=== PATIENT | female | born 1975 | race Caucasian/White ===

== ENCOUNTER 2017-04-07 13:33 | Emergency (ER) | payer SELFPAY ==
[2017-04-07 13:47] VITALS: BP 131/69
--- NOTE | 2017-04-07 14:46 | RAD ---
INDICATION: Right foot injury COMPARISON: None TECHNIQUE: AP, lateral, and oblique views were obtained. FINDINGS: There are no acute osseous findings. There is an arcuate tarsonavicular with an ossicle or old fracture. There are heel spurs. There are mild hammertoe deformities. IMPRESSION: NO ACUTE BONY FINDINGS.
--- NOTE | 2017-04-07 15:11 | ED ---
Lower Extremity - HPI Summary HPI Summary: 41 female presents with complaints of right foot pain and twisting it and falling down a few stairs yesterday. Patient did not hit her head and denies any other injuries. Admits to some swelling. States her foot landed underneath her. Patient denies bruising and ankle/knee pain. Walking and touch worsens her pain. Resting makes pain better. Dull ache. Sharp with certain movement. Pain is on top of foot. No other complaints. No PMHx. Has been taking ibuprofen for pain which was last taken at 5am today. Denies numbness/tingling. - History of Current Complaint Chief Complaint: EDExtremityLower Stated Complaint: RIGHT ANKLE PAIN Time Seen by Provider: 04/07/17 13:50 Hx Obtained From: Patient Mechanism Of Injury: Fall From Height Of: - 2-3 stairs, Twisted Onset of Pain: Immediate, Post Accident Onset/Duration: Days - yesterday began Severity Initially: Moderate Severity Currently: Moderate Pain Intensity: 6 Pain Scale Used: 0-10 Numeric Timing: Constant Location: Is Discrete @ - top of right foot Character Of Pain: Sharp, Aching Associated Signs And Symptoms: Positive: Swelling. Negative: Redness, Bruising , Fever Aggravating Factor(s): Standing, Ambulation, Weight Bearing Alleviating Factor(s): Rest, OTC Meds - ibuprofen Able to Bear Weight: Yes - causes pain - Allergies/Home Medications Allergies/Adverse Reactions: Allergies Allergy/AdvReac Type Severity Reaction Status Date / Time Clarithromycin [From Biaxin] Allergy Hives Verified 04/07/17 13:53 Latex Allergy Rash Verified 04/07/17 13:53 Levofloxacin [From Levaquin] Allergy Rash Verified 04/07/17 13:53 Metronidazole [From Flagyl] Allergy Unknown Verified 04/07/17 13:53 Reaction Details Nitrofurantoin Allergy Anaphylatic Verified 04/07/17 13:53 [From Macrobid] Shock Sulfamethoxazole Allergy Hives Verified 04/07/17 13:53 w/Trimethoprim [From Bactrim] PMH/Surg Hx/FS Hx/Imm Hx Endocrine/Hematology History: Denies: Hx Diabetes Respiratory History: Denies: Hx Asthma GI History: Reports: Hx Gastroesophageal Reflux Disease, Other GI Disorders - cyclic vomiting syndrome History: Reports: Hx Kidney Stones, Other Problems/Disorders - HX of kidney stones Musculoskeletal History: Reports: Hx Back Problems - spinal stenosis Neurological History: Reports: Hx Spinal Cord Injury - spinal stenosis causes periodic numbness to b/l LE and/or hands Psychiatric History: Reports: Hx Depression - Cancer History Hx Chemotherapy: No Hx Radiation Therapy: No - Surgical History Surgery Procedure, Year, and Place: kidney stones removed via stent. wisdom teeth removed. - Immunization History Date of Tetanus Vaccine: PT STATES UNSURE Date of Influenza Vaccine: PT STATES UNSURE Immunizations Up to Date: Yes Infectious Disease History: Yes Infectious Disease History: Denies: Traveled Outside the [place] in Last 30 Days - Social History Alcohol Use: None Substance Use Type: Reports: None, Prescribed Substance Use Comment - Amount & Last Used: PRESCRIBED DILAUDID PO Smoking Status (MU): Current Every Day Smoker Review of Systems Constitutional: Negative Cardiovascular: Negative Respiratory: Negative Gastrointestinal: Negative Positive: Arthralgia, Myalgia, Decreased ROM, Edema - right top of foot Skin: Negative Neurological: Negative All Other Systems Reviewed And Are Negative: Yes Physical Exam Triage Information Reviewed: Yes Vital Signs On Initial Exam: Initial Vitals Temp Pulse Resp BP Pulse Ox 98.4 F 91 18 131/69 98 04/07/17 13:45 04/07/17 13:45 04/07/17 13:45 04/07/17 13:45 04/07/17 13:45 Vital Signs Reviewed: Yes Appearance: Positive: Well-Appearing, No Pain Distress, Well-Nourished Skin: Positive: Warm, Skin Color Reflects Adequate Perfusion, Dry. Negative: Cold, Numb, Cyanosis @, Pale, Erythema @ Head/Face: Positive: Normal Head/Face Inspection Eyes: Positive: Conjunctiva Clear ENT: Positive: Hearing grossly normal Neck: Positive: Supple, Nontender Respiratory/Lung Sounds: Positive: Clear to Auscultation, Breath Sounds Present. Negative: Rales, Rhonchi, Wheezes Cardiovascular: Positive: Normal, RRR, Pulses are Symmetrical in both Upper and Lower Extremities - 2+ pedal b/l. Negative: Murmur, Rub Musculoskeletal: Positive: Strength/ROM Intact - however causes pain with movement or touch, but is able. all toes and ankle FROM, Pain @ - top, anterior of right foot, diffusely tender to touch, Edema Left - chronic, Edema Right - mild edema of right foot, some may be chronic per patient, Other - no crepitus or step off, no ecchymosis or obvious deformity noted. Negative: Limited @, Interruption @, Abnormal @, Zara Sign Left, Zara Sign Right Neurological: Positive: Normal, Sensory/Motor Intact - sensation intact, Alert, Oriented to Person Place, Time, CN Intact II-III, NV Bundle Intact Distally, Normal Gait - however causes pain Psychiatric: Positive: Affect/Mood Appropriate Diagnostics - Vital Signs Vital Signs Temp Pulse Resp BP Pulse Ox 04/07/17 13:51 98.4 F 91 16 131/69 98 04/07/17 13:45 98.4 F 91 18 131/69 98 - Laboratory Lab Statement: Any lab studies that have been ordered have been reviewed, and results considered in the medical decision making process. - Radiology right foot Xray Interpretation: No Acute Changes Radiology Interpretation Completed By: Radiologist Lower Extremity Course/Dx - Course Course Of Treatment: given naproxen for pain, farideh bandage applied. discussed CAM boot however patient was not interested. given crutches. RICE and NSAIDs. negative x-ray. no concern for fracture or other etiology. aware of worsening signs and symptoms. follow up. - Diagnoses Differential Diagnosis/HQI/PQRI: Positive: Arthritis, Contusion, Dislocation, Fracture (Closed), Sprain, Strain Provider Diagnoses: Right foot sprain Discharge - Discharge Plan Condition: Stable Disposition: HOME Patient Education Materials: Foot Sprain (ED) Referrals: Jose Whitaker MD [Primary Care Provider] - Additional Instructions: Take anti inflammatory medication such as ibuprofen or aleve every 4-6 hours for pain and inflammation. Rest, elevate and ice. Keep farideh bandage on for compression and pain. Crutches as needed. Follow up with PCP. Return if symptoms worsen or new symptoms develop.
[2017-04-07] MEDS ORDERED: Naproxen TAB* 250 MG PO ONE (15:20)
== END 2017-04-07 15:30 | disposition home or self-care (01) ==
LOC: ED 13:33
DX: S93.601A Unspecified sprain of right foot, initial encounter (principal); Y93.9 Activity, unspecified; W10.9XXA Fall (on) (from) unspecified stairs and steps, initial encounter; M79.671 Pain in right foot; R60.9 Edema, unspecified
CPT/HCPCS: 99282; A9270-GY

== ENCOUNTER 2019-10-20 20:32 | Emergency (ER) | payer OTHER ==
--- NOTE | 2019-10-20 21:58 | ED ---
Lower Extremity - HPI Summary HPI Summary: 43-year-old female in no significant past medical history presents to the emergency Department today with chief complaint of bilateral lower extremity edema. Patient states she chronically has water retention in her bilateral feet however she began noticing new bilateral lower extremity edema with no erythema or ecchymosis at approximately 0600 this date. Patient states that approximately 1300 the left leg began having weeping edema. Patient has taken 40 mg of furosemide prior to arrival for her edema. Patient denies recent travel, recent surgery, immobilization. Patient denies past medical history of blood clot. The patient denies shortness of breath or chest pain. Patient otherwise feels well and is able to ambulate. Patient denies fever, chest pain , shortness breath, vomiting, urination, nausea, vomiting or diarrhea. - History of Current Complaint Chief Complaint: EDExtremityLower Stated Complaint: LT LEG SWOLLEN PER PT Time Seen by Provider: 10/20/19 21:44 Hx Obtained From: Patient Mechanism Of Injury: Unknown Onset of Pain: Hours Onset/Duration: Hours Severity Initially: Mild Severity Currently: Mild Pain Intensity: 3 Pain Scale Used: 0-10 Numeric Timing: Constant Character Of Pain: Aching Associated Signs And Symptoms: Positive: Swelling. Negative: Redness, Bruising , Fever Aggravating Factor(s): Standing, Ambulation, Movement, Weight Bearing Alleviating Factor(s): Rest, Elevation Able to Bear Weight: Yes - Allergies/Home Medications Allergies/Adverse Reactions: Allergies Allergy/AdvReac Type Severity Reaction Status Date / Time MS Clarithromycin Allergy Hives Verified 10/20/19 20:35 [From Biaxin] MS Latex [Latex] Allergy Rash Verified 10/20/19 20:35 MS Levofloxacin Allergy Rash Verified 10/20/19 20:35 [From Levaquin] MS Metronidazole Allergy Unknown Verified 10/20/19 20:35 [From Flagyl] Reaction Details MS Nitrofurantoin Allergy Anaphylatic Verified 10/20/19 20:35 [From Macrobid] Shock MS Sulfamethoxazole Allergy Hives Verified 10/20/19 20:35 w/Trimethoprim [From Bactrim] Home Medications: Home Medications Amitriptyline TAB* [Elavil TAB*] 25 mg PO BEDTIME 05/25/16 [History Confirmed ] Carisoprodol TAB* [Soma TAB*] 350 mg PO TID PRN 05/25/16 [History Confirmed 02/04] FLUoxetine CAP* [PROzac CAP*] 20 mg PO DAILY 05/25/16 [History Confirmed ] Furosemide TAB* [Lasix TAB*] 40 mg PO DAILY PRN 05/25/16 [History Confirmed 02/04] HYDROmorphone TAB* [Dilaudid TAB*] 4 mg PO Q4H PRN 05/25/16 [History Confirmed 05/27/16] Ibuprofen TAB* [Motrin TAB* 800 MG] 800 mg PO Q8H PRN 05/25/16 [History Confirmed 05/27/16] Metoclopramide TAB* [Reglan TAB*] 10 mg PO Q6H PRN 05/25/16 [History Confirmed 05/27/16] Ondansetron ODT TAB* [Zofran Odt TAB*] 1 - 2 tab PO Q6H PRN 05/25/16 [History Confirmed 05/27/16] Pantoprazole TAB * [Protonix TAB (NF)] 40 mg PO DAILY 05/25/16 [History Confirmed 05/27/16] Potassium Chloride [K-Tab] 10 - 20 meq PO DAILY PRN 05/25/16 [History Confirmed 05/27/16] oxyCODONE/Acetamin 10/325(NF) [Percocet 10/325 (NF)] 1 tab PO QID PRN 05/25/16 [ History Confirmed 05/27/16] Amoxicillin PO (*) [Amoxicillin 875 MG (*)] 2 tab PO DAILY 05/27/16 [History Confirmed 05/27/16] Furosemide TAB* [Lasix TAB*] 40 mg PO DAILY #20 tab 10/20/19 [Rx] PMH/Surg Hx/FS Hx/Imm Hx Endocrine/Hematology History: Denies: Hx Diabetes Respiratory History: Denies: Hx Asthma GI History: Reports: Hx Gastroesophageal Reflux Disease, Other GI Disorders - cyclic vomiting syndrome History: Reports: Hx Kidney Stones, Other Problems/Disorders - HX of kidney stones Musculoskeletal History: Reports: Hx Back Problems - spinal stenosis Neurological History: Reports: Hx Spinal Cord Injury - spinal stenosis causes periodic numbness to b/l LE and/or hands Psychiatric History: Reports: Hx Depression - Cancer History Hx Chemotherapy: No Hx Radiation Therapy: No - Surgical History Surgery Procedure, Year, and Place: kidney stones removed via stent. wisdom teeth removed. - Immunization History Date of Tetanus Vaccine: PT STATES UNSURE Date of Influenza Vaccine: PT STATES UNSURE Infectious Disease History: No Infectious Disease History: Denies: Traveled Outside the [place] in Last 30 Days - Social History Alcohol Use: None Substance Use Type: Reports: None, Prescribed Substance Use Comment - Amount & Last Used: PRESCRIBED DILAUDID PO Smoking Status (MU): Current Every Day Smoker Review of Systems Constitutional: Negative Eyes: Negative ENT: Negative Cardiovascular: Negative Respiratory: Negative Gastrointestinal: Negative Genitourinary: Negative Positive: Myalgia, Edema. Negative: Arthralgia, Decreased ROM Skin: Negative Neurological/Mental Status: Negative Psychological: Normal All Other Systems Reviewed And Are Negative: Yes Physical Exam - Summary Physical Exam Summary: Patient is in acute distress. Patient has bilateral lower extremity edema. There is no evidence of erythema or ecchymosis. There is 2+ pitting edema bilaterally with weeping edema on the left lower cavity. Patient has 2+ dorsalis pedis pulses bilaterally. Patient has full range of motion of the lower extremities. Patient is neurovascularly intact in the lower extremity as bilaterally. Negative Homans sign bilaterally. Triage Information Reviewed: Yes Vital Signs On Initial Exam: Initial Vitals Temp Pulse Resp BP Pulse Ox 97.1 F 91 15 118/88 94 10/20/19 20:33 10/20/19 20:33 10/20/19 20:33 10/20/19 20:33 10/20/19 20:33 Vital Signs Reviewed: Yes Appearance: Positive: Well-Appearing, No Pain Distress, Well-Nourished Skin: Positive: Warm, Skin Color Reflects Adequate Perfusion Eyes: Positive: EOMI, FREDRICK ENT: Positive: Hearing grossly normal Respiratory/Lung Sounds: Positive: Clear to Auscultation, Breath Sounds Present Cardiovascular: Positive: RRR, S1, S2 Abdomen Description: Positive: Nontender, Soft Bowel Sounds: Positive: Present Musculoskeletal: Positive: Strength/ROM Intact Neurological: Positive: Sensory/Motor Intact, Alert, Oriented to Person Place, Time, Normal Gait, Facial Symmetry, Speech Normal Psychiatric: Positive: Normal, Affect/Mood Appropriate AVPU Assessment: Alert Procedures - Sedation Patient Received Moderate/Deep Sedation with Procedure: No Diagnostics - Vital Signs Vital Signs Temp Pulse Resp BP Pulse Ox 10/20/19 20:33 97.1 F 91 15 118/88 94 - Laboratory Result Diagrams: 10/20/19 22:21 10/20/19 22:21 Lab Statement: Any lab studies that have been ordered have been reviewed, and results considered in the medical decision making process. Lower Extremity Course/Dx - Course Course Of Treatment: Patient was evaluated in emergency department today for lower extremity edema. Vitals noted and stable. Physical exam is consistent with possible venous insufficiency. Laboratory studies returned with no concerning findings. No evidence of leukocytosis, renal insufficiency, liver disease, anemia, negative d-dimer. Laboratory studies show no life-threatening pathology at this time. Patient was given prescription for furosemide 40 mg daily and told to follow-up with her primary care provider. Patient discharged with outpatient follow-up. No evidence of DVT at this time for life- threatening pathology. - Diagnoses Differential Diagnosis/HQI/PQRI: Positive: DVT, Phlebitis, Sprain, Strain Provider Diagnoses: Lower extremity edema Discharge ED - Sign-Out/Discharge Documenting (check all that apply): Patient Departure - Discharge Plan Condition: Stable Disposition: HOME Prescriptions: Furosemide TAB* [Lasix TAB*] 40 mg PO DAILY #20 tab Patient Education Materials: Leg Edema (ED) Referrals: [facility] [Outside] - 3 Days Additional Instructions: There appears to be no acute medical process requiring intervention at this time. Please continue to take your furosemide as directed by your primary care provider. Please follow-up with your primary care provider in 3 days for further evaluation and management. Please return to the emergency department immediately if you develop any new or worsening symptoms. - Billing Disposition and Condition Condition: STABLE Disposition: Home - Attestation Statements Provider Attestation: I was available for consultation for this patient. I did not evaluate the patient or participate in any medical decision making or disposition decisions unless I am specifically named in the chart as having consulted on the patient. If I have consulted on the patient, please see my own ED note on the patient encounter. Joel Johansen MD
[2019-10-20 22:27] LABS: ABS Basophils 0.1 10^3/ul (0-0.2); ABS Eosinophils 0.2 10^3/ul (0-0.6); ABS Lymphocytes 2.5 10^3/ul (1.0-4.8); ABS Monocytes 0.9 10^3/ul (0-0.8); ABS Neutrophils 6.4 10^3/ul (1.5-7.7); Eosinophil % 1.6 %; Hematocrit 40 % (35-47); Hemoglobin 13.9 g/dL (12.0-16.0); Lymphocyte % 24.5 %; Mean Corpuscular HGB Conc 35 g/dL (31-36); Mean Corpuscular Hemoglobin 28 pg (27-31); Mean Corpuscular Volume 81 fL (80-97); Mean Platelet Volume 8.6 fL (7.4-10.4); Platelet Count 203 10^3/uL (150-450); Red Blood Count 4.93 10^6 /uL (3.70-4.87); Red Cell Distribution Width 16 % (10-15); White Blood Count 10.1 10^3/uL (3.5-10.8)
[2019-10-20 22:43] LABS: Albumin 3.9 g/dL (3.2-5.2); Albumin/Globulin Ratio 1.3 (1-3); Calcium 8.7 mg/dL (8.6-10.3); EGFR African American 86.7 (>60); EGFR Non-African American 71.7 (>60); Globulin 2.9 g/dL (2-4); Potassium 4.1 mmol/L (3.5-5.0); Total Bilirubin 0.3 mg/dL (0.2-1.0); Total Protein 6.8 g/dL (6.4-8.9)
[2019-10-20 22:56] VITALS: BP 104/56
== END 2019-10-20 22:56 | disposition home or self-care (01) ==
LOC: ED 20:32
DX: R60.9 Edema, unspecified (principal); F32.9 Major depressive disorder, single episode, unspecified; K21.9 Gastro-esophageal reflux disease without esophagitis; F17.210 Nicotine dependence, cigarettes, uncomplicated; Z88.2 Allergy status to sulfonamides; Z79.899 Other long term (current) drug therapy; Z87.442 Personal history of urinary calculi
CPT/HCPCS: 36415; 80053; 85025; 85379; 99282

== ENCOUNTER 2021-03-06 08:25 | Observation (INO) ==
[~2021-03-06 08:25] MED LIST: Vancomycin 1,500 MG in NS 0.9% 250 ml 250 ML IVPB SCH
[2021-03-06] MEDS ORDERED: Lidocaine 4% GEL 10 GM TUBE ONE (08:33)
[2021-03-06] MEDS ORDERED: Lidocaine 2% JELLY 6 ML TOPICAL ONE (08:34)
[2021-03-06] MEDS ORDERED: Bacitracin OINTMENT PAK ONE (09:30)
[2021-03-06] MEDS ORDERED: Enoxaparin 40 MG/0.4 ML SYR SUBCUT SCH (17:00)
[2021-03-06 17:20] LABS: ABS Basophils 0.1 10^3/ul (0-0.2); ABS Eosinophils 0.2 10^3/ul (0-0.6); ABS Lymphocytes 1.5 10^3/ul (1.0-4.8); ABS Monocytes 0.9 10^3/ul (0-0.8); ABS Neutrophils 6.8 10^3/ul (1.5-7.7); Hematocrit 36 % (35-47); Hemoglobin 11.7 g/dL (12.0-16.0); Lymphocyte % 16.1 %; Mean Corpuscular HGB Conc 33 g/dL (31-36); Mean Corpuscular Hemoglobin 26 pg (27-31); Mean Corpuscular Volume 80 fL (80-97); Mean Platelet Volume 7.9 fL (7.4-10.4); Platelet Count 265 10^3/uL (150-450); Red Blood Count 4.42 10^6 /uL (3.70-4.87); Red Cell Distribution Width 18 % (10-15); White Blood Count 9.5 10^3/uL (3.5-10.8)
[2021-03-06] MEDS ORDERED: Vancomycin per Pharmacy 1 EA NOTE FOLLOW UP PRN (17:50)
[2021-03-06] MEDS ORDERED: cefTRIAXone 1 gm/50 mL NS BAG 1 GM/50 ML BAG IVPB SCH (18:00)
[2021-03-06] MEDS ORDERED: Vancomycin 2,000 MG in NS 0.9% 500 ml BAG 500 ML IVPB ONE (18:00)
[2021-03-06 18:17] LABS: Albumin 3.7 g/dL (3.2-5.2); C Reactive Protein 99.66 mg/L (<8.01); Calcium 8.9 mg/dL (8.6-10.3); Globulin 3.8 g/dL (2-4); Potassium 4.3 mmol/L (3.5-5.0); Total Bilirubin 0.2 mg/dL (0.2-1.0); Total Protein 7.5 g/dL (6.4-8.9)
[2021-03-06 19:36] LABS: EGFR African American 125.4 (>60); EGFR Non-African American 103.6 (>60)
[2021-03-07] MEDS: Vancomycin 1,500 MG in NS 0.9% 250 ml 250 ML IVPB SCH ×2 (02:07→09:37)
[2021-03-07 07:11] LABS: Potassium 3.9 mmol/L (3.5-5.0)
[2021-03-07] MEDS ORDERED: Nicotine PATCH 21 MG/24 HR PATCH TRANSDERM SCH (08:00)
[2021-03-07] MEDS ORDERED: Methadone ORALSYR CONC LIQ 10 MG/ML PO SCH (09:00)
[2021-03-07] MEDS ORDERED: Collagenase 250 units/gm OINT 1 tube TOPICAL SCH (13:30)
[2021-03-07 14:37] VITALS: BP 151/81
[2021-03-07] MEDS ORDERED: Vancomycin Trough Check NOTE FOLLOW UP ONE (17:30)
== END 2021-03-07 13:40 | disposition left against medical advice (07) ==
LOC: WOUND 08:25 → INTOOBSV 16:10 → MED 16:10
PROVIDERS: ADMIT Surgery; ATTEND Hospitalist

== ENCOUNTER 2021-04-28 10:22 | Inpatient (IN) ==
[2021-04-28 12:36] LABS: Venous Bicarbonate HCO3 24.4 mmol/L (24-28)
[2021-04-28 12:41] LABS: ABS Basophils 0.1 10^3/ul (0-0.2); ABS Eosinophils 0.4 10^3/ul (0-0.6); ABS Lymphocytes 1.5 10^3/ul (1.0-4.8); Eosinophil % 3.8 %; Hematocrit 30 % (35-47); Hemoglobin 9.5 g/dL (12.0-16.0); Lymphocyte % 13.4 %; Mean Corpuscular HGB Conc 32 g/dL (31-36); Mean Corpuscular Hemoglobin 25 pg (27-31); Mean Corpuscular Volume 79 fL (80-97); Mean Platelet Volume 7.5 fL (7.4-10.4); Nucleated Red Blood Cells % 0.3; Platelet Count 292 10^3/uL (150-450); Red Cell Distribution Width 19 % (10-15)
[2021-04-28 12:59] LABS: ALT 42 U/L (7-52); AST 54 U/L (13-39); Albumin 3.2 g/dL (3.2-5.2); Albumin/Globulin Ratio 0.8 (1-3); Alkaline Phosphatase 143 U/L (35-149); Anion Gap 7 mmol/L (2-11); Blood Urea Nitrogen 14 mg/dL (6-24); CO2 Carbon Dioxide 28 mmol/L (22-32); Calcium 8.6 mg/dL (8.6-10.3); Chloride 103 mmol/L (101-111); EGFR African American 112.7 (>60); EGFR Non-African American 93.2 (>60); Globulin 3.8 g/dL (2-4); Glucose 134 mg/dL (70-100); Potassium 3.3 mmol/L (3.5-5.0); Sodium 138 mmol/L (135-145)
[2021-04-28] MEDS ORDERED: cefTRIAXone 1 gm/50 mL NS BAG 1 GM/50 ML BAG IV ONE (13:13)
[2021-04-28] MEDS ORDERED: Vancomycin 2,000 MG in NS 0.9% 250 ml 250 ML IVPB ONE (13:14)
[2021-04-28 13:41] LABS: CRP High Sensitivity > 80.00 mg/L (<2.00)
[2021-04-28 13:43] LABS: Troponin I 0.06 ng/mL (<0.03)
[2021-04-28] MEDS ORDERED: Vancomycin 2,000 MG in NS 0.9% 500 ml BAG 500 ML IVPB ONE ×2 (14:00→16:00)
[2021-04-28 14:03] LABS: PCO2 Arterial 52 mmHg (35-45); PO2 Arterial 78 mmHg (80-100)
[2021-04-28] MEDS: KCL 20 MEQ/100 ML IVPREMIX 20 MEQ/100 ML BAG IV SCH ×2 (14:10→19:55)
[2021-04-28] MEDS ORDERED: Ondansetron 4 mg VIAL 2 MG/ML 2 ml VIAL IV PRN (15:01)
[2021-04-28] MEDS ORDERED: Vancomycin 1,000 MG in NS 0.9% 250 ml 250 ML IVPB ONE (15:01)
[2021-04-28 15:11] LABS: Erythrocyte Sed Rate 102 mm/Hr (0-19)
[2021-04-28 15:22] LABS: PCO2 Arterial 50 mmHg (35-45); PO2 Arterial 78 mmHg (80-100)
[2021-04-28] MEDS ORDERED: Albuterol 2.5mg/3 ml (0.083%) NEB.SOLN INH PRN (15:30)
[2021-04-28 15:53] LABS: Activated Partial Thrombo Time 30.6 seconds (26.0-38.0); INR 1.15 (0.86-1.15)
[2021-04-28 15:57] LABS: C Reactive Protein 213.26 mg/L (<8.01)
[2021-04-28] MEDS ORDERED: Vancomycin per Pharmacy 1 EA NOTE FOLLOW UP SCH (16:00)
[2021-04-28] MEDS ORDERED: Furosemide 40 mg/4 ml IV VIAL IV SLOW PU ONE (16:21)
[2021-04-28] MEDS: Albuterol/Ipratropium NEB.SOL (2.5/0.5 MG) 3 ML NEB.SOLN INH SCH ×3 (20:28→23:46)
[2021-04-28] MEDS ORDERED: Potassium Chloride LIQUID 20 MEQ/15 ML LIQUID PO ONE (22:07)
[2021-04-28] MEDS: KCL 10 MEQ/50 ML IVPREMIX 10 MEQ/50 ML BAG IV SCH (23:11)
[2021-04-28 23:21] LABS: Anion Gap 7 mmol/L (2-11); Blood Urea Nitrogen 11 mg/dL (6-24); CO2 Carbon Dioxide 28 mmol/L (22-32); Chloride 103 mmol/L (101-111); EGFR African American 123.1 (>60); EGFR Non-African American 101.7 (>60); Glucose 135 mg/dL (70-100); Potassium 3.4 mmol/L (3.5-5.0); Sodium 138 mmol/L (135-145)
[2021-04-28 23:28] LABS: Troponin I 0.05 ng/mL (<0.03)
[2021-04-29] MEDS: Heparin 5000 UNITS/ML 1 mL VIAL SUBCUT SCH ×4 (01:19→21:05)
[2021-04-29] MEDS: Vancomycin 1,250 MG in NS 0.9% 250 ml 250 ML IVPB SCH ×3 (02:51→18:21)
[2021-04-29] MEDS: Albuterol/Ipratropium NEB.SOL (2.5/0.5 MG) 3 ML NEB.SOLN INH SCH ×2 (03:15→10:16)
[2021-04-29 04:29] LABS: Hematocrit 29 % (35-47); Hemoglobin 8.9 g/dL (12.0-16.0); Mean Corpuscular HGB Conc 31 g/dL (31-36); Mean Corpuscular Hemoglobin 25 pg (27-31); Mean Corpuscular Volume 79 fL (80-97); Red Blood Count 3.64 10^6 /uL (3.70-4.87); Red Cell Distribution Width 19 % (10-15); White Blood Count 10.7 10^3/uL (3.5-10.8)
[2021-04-29 04:30] LABS: INR 1.21 (0.86-1.15)
[2021-04-29 04:38] LABS: Blood Urea Nitrogen 11 mg/dL (6-24); CO2 Carbon Dioxide 26 mmol/L (22-32); Calcium 7.8 mg/dL (8.6-10.3); Chloride 105 mmol/L (101-111); Glucose 126 mg/dL (70-100); Sodium 137 mmol/L (135-145)
[2021-04-29 04:39] LABS: Anion Gap 6 mmol/L (2-11)
[2021-04-29 04:43] LABS: Troponin I 0.05 ng/mL (<0.03)
[2021-04-29 04:50] LABS: ABS Basophils 0.1 10^3/ul (0-0.2); ABS Eosinophils 0.2 10^3/ul (0-0.6); ABS Lymphocytes 1.5 10^3/ul (1.0-4.8); ABS Monocytes 1.2 10^3/ul (0-0.8); ABS Neutrophils 7.8 10^3/ul (1.5-7.7); Eosinophil % 2.2 %; Lymphocyte % 13.6 %; Nucleated Red Blood Cells % 0.2; Platelet Count Platelets clumped. 10^3/uL (150-450)
[2021-04-29] MEDS ORDERED: Pantoprazole VIAL 40 MG VIAL IV SCH (09:00)
[2021-04-29] MEDS ORDERED: Furosemide 40 mg/4 ml IV VIAL IV SLOW PU ONE (09:25)
[2021-04-29] MEDS ORDERED: Potassium Chloride LIQUID 20 MEQ/15 ML LIQUID PO ONE (09:25)
[2021-04-29] MEDS: cefTRIAXone 1 gm/50 mL NS BAG 1 GM/50 ML BAG IVPB SCH (09:29)
[2021-04-29] MEDS ORDERED: Perflutren Lipid Microsphere 3 ML VIAL ONE (14:34)
[2021-04-29] MEDS ORDERED: Potassium Chlor 20 meq TAB.ER PO ONE (15:54)
[2021-04-29 16:21] LABS: Anion Gap 7 mmol/L (2-11); Blood Urea Nitrogen 10 mg/dL (6-24); CO2 Carbon Dioxide 28 mmol/L (22-32); Calcium 8.1 mg/dL (8.6-10.3); Chloride 102 mmol/L (101-111); EGFR African American 181.5 (>60); Glucose 169 mg/dL (70-100); Magnesium 1.8 mg/dL (1.9-2.7); Potassium 3.9 mmol/L (3.5-5.0); Sodium 137 mmol/L (135-145)
[2021-04-29 16:25] LABS: Troponin I 0.04 ng/mL (<0.03)
[2021-04-29] MEDS ORDERED: Vancomycin Trough Check NOTE FOLLOW UP ONE (17:30)
[2021-04-29] MEDS ORDERED: Magnesium Sulfate 2 gm BAG 2 GM/50 ML BAG IVPB ONE (19:20)
[2021-04-30] MEDS: Vancomycin 1,250 MG in NS 0.9% 250 ml 250 ML IVPB SCH ×2 (03:08→10:21)
[2021-04-30 05:08] LABS: Hematocrit 30 % (35-47); Hemoglobin 9.2 g/dL (12.0-16.0); Mean Corpuscular HGB Conc 31 g/dL (31-36); Mean Corpuscular Hemoglobin 24 pg (27-31); Mean Corpuscular Volume 78 fL (80-97); Mean Platelet Volume 7.7 fL (7.4-10.4); Platelet Count 240 10^3/uL (150-450); Red Blood Count 3.76 10^6 /uL (3.70-4.87); Red Cell Distribution Width 19 % (10-15)
[2021-04-30 05:09] LABS: ABS Basophils 0.1 10^3/ul (0-0.2); ABS Eosinophils 0.1 10^3/ul (0-0.6); ABS Lymphocytes 1.3 10^3/ul (1.0-4.8); ABS Monocytes 1.8 10^3/ul (0-0.8); ABS Neutrophils 9.7 10^3/ul (1.5-7.7); Eosinophil % 0.9 %; Lymphocyte % 9.9 %; Nucleated Red Blood Cells % 0.1
[2021-04-30 05:34] LABS: EGFR African American 196.5 (>60); EGFR Non-African American 162.4 (>60)
[2021-04-30 05:42] LABS: Calcium 7.5 mg/dL (8.6-10.3); EGFR African American 220.6 (>60); EGFR Non-African American 182.3 (>60); Magnesium 2.1 mg/dL (1.9-2.7); Phosphorus 2.4 mg/dL (2.5-5.0); Potassium 4.3 mmol/L (3.5-5.0)
[2021-04-30] MEDS: Heparin 5000 UNITS/ML 1 mL VIAL SUBCUT SCH (05:51)
[2021-04-30] MEDS ORDERED: Furosemide 40 mg/4 ml IV VIAL IV SLOW PU ONE (08:12)
[2021-04-30] MEDS: cefTRIAXone 1 gm/50 mL NS BAG 1 GM/50 ML BAG IVPB SCH (09:30)
[2021-04-30] MEDS ORDERED: Hyaluronidase HUMAN 15 UNIT in Sodium Chloride 0.9% 0.9 ML INTRADERM ONE (11:42)
[2021-04-30 12:01] VITALS: BP 161/103
== END 2021-04-30 15:26 | disposition left against medical advice (07) | DRG 133 ==
LOC: ED 10:22 → ICU 14:53
PROVIDERS: ADMIT Internal Medicine; ATTEND Internal Medicine

== ENCOUNTER 2021-05-15 10:16 | Inpatient (IN) ==
[2021-05-15] MEDS ORDERED: Ondansetron 4 mg VIAL 2 MG/ML 2 ml VIAL IV PRN (14:06)
[2021-05-15] MEDS ORDERED: Albuterol 2.5mg/3 ml (0.083%) NEB.SOLN INH PRN (14:11)
[2021-05-15] MEDS ORDERED: Vancomycin per Pharmacy 1 EA NOTE FOLLOW UP PRN (14:58)
[2021-05-15 15:26] LABS: Rapid COVID-19 Molecular Undetected (Undetected)
[2021-05-15] MEDS: Nicotine PATCH 21 MG/24 HR PATCH TRANSDERM SCH (15:45)
[2021-05-15 17:45] LABS: ABS Basophils 0.1 10^3/ul (0-0.2); ABS Eosinophils 0.2 10^3/ul (0-0.6); ABS Lymphocytes 2.1 10^3/ul (1.0-4.8); ABS Monocytes 1.2 10^3/ul (0-0.8); ABS Neutrophils 7.1 10^3/ul (1.5-7.7); ABS Nucleated RBC 0.1 10^3/ul; Eosinophil % 1.7 %; Hematocrit 33 % (35-47); Hemoglobin 10.3 g/dL (12.0-16.0); Lymphocyte % 19.9 %; Mean Corpuscular HGB Conc 31 g/dL (31-36); Mean Corpuscular Hemoglobin 24 pg (27-31); Mean Corpuscular Volume 78 fL (80-97); Mean Platelet Volume 7.7 fL (7.4-10.4); Nucleated Red Blood Cells % 1.2; Platelet Count 400 10^3/uL (150-450); Red Blood Count 4.28 10^6 /uL (3.70-4.87); Red Cell Distribution Width 19 % (10-15); White Blood Count 10.7 10^3/uL (3.5-10.8)
[2021-05-15 18:00] LABS: Albumin 3.3 g/dL (3.2-5.2); Albumin/Globulin Ratio 0.9 (1-3); Calcium 8.6 mg/dL (8.6-10.3); EGFR African American 112.7 (>60); EGFR Non-African American 93.2 (>60); Globulin 3.8 g/dL (2-4); Potassium 3.5 mmol/L (3.5-5.0); Total Bilirubin 0.3 mg/dL (0.2-1.0); Total Protein 7.1 g/dL (6.4-8.9)
[2021-05-15 18:02] LABS: % Iron Saturation 6 % (15-55); Iron 24 ug/dL (50-212); Total Iron Binding Capacity 370 mcg/dL (250-450); Transferrin 264 mg/dL (203-362); Unsaturated Iron Binding < 355 ug/dL
[2021-05-15 18:04] LABS: CRP High Sensitivity 82.53 mg/L (<2.00)
[2021-05-15] MEDS: cefTRIAXone 1 gm/50 mL NS BAG 1 GM/50 ML BAG IVPB SCH (18:45)
[2021-05-15 19:22] LABS: Vitamin D Total 25(OH) < 7.0 ng/mL (20-50)
[2021-05-15] MEDS ORDERED: Vancomycin 2,000 MG in NS 0.9% 500 ml BAG 500 ML IVPB ONE (20:00)
[2021-05-15] MEDS ORDERED: Vancomycin 1,250 MG in NS 0.9% 250 ml 250 ML IVPB SCH (20:00)
[2021-05-15 20:12] LABS: INR 1.2 (0.86-1.15)
[2021-05-15 20:23] LABS: EGFR African American 100.7 (>60); EGFR Non-African American 83.2 (>60)
[2021-05-15] MEDS: Heparin 5000 UNITS/ML 1 mL VIAL SUBCUT SCH (23:04)
[2021-05-16] MEDS: HYDROcodone/ACETAMIN 5/325 mg TAB PO PRN ×4 (00:40→20:56)
[2021-05-16] MEDS: Vancomycin 1,250 MG in NS 0.9% 250 ml 250 ML IVPB SCH ×4 (04:48→23:24)
[2021-05-16] MEDS: Heparin 5000 UNITS/ML 1 mL VIAL SUBCUT SCH ×3 (05:45→23:23)
[2021-05-16] MEDS: Nicotine PATCH 21 MG/24 HR PATCH TRANSDERM SCH (08:36)
[2021-05-16] MEDS ORDERED: Iron Sucrose 20 MG/ML 5 ML VIAL IV PUSH ONE (10:40)
[2021-05-16] MEDS ORDERED: Dextrose 50% Syringe 50 ml 25 GM/50 ML SYRINGE IV PUSH PRN (10:44)
[2021-05-16] MEDS: Multivitamins/Minerals TAB PO SCH (11:30)
[2021-05-16] MEDS ORDERED: Iron Sucrose 200 MG in NS 0.9% 100 ml IVPB ONE (12:00)
[2021-05-16] MEDS: cefTRIAXone 1 gm/50 mL NS BAG 1 GM/50 ML BAG IVPB SCH (18:18)
[2021-05-17] MEDS: HYDROcodone/ACETAMIN 5/325 mg TAB PO PRN ×3 (03:27→22:44)
[2021-05-17] MEDS: Heparin 5000 UNITS/ML 1 mL VIAL SUBCUT SCH ×3 (06:26→23:44)
[2021-05-17] MEDS: Vancomycin 1,250 MG in NS 0.9% 250 ml 250 ML IVPB SCH ×2 (07:14→16:23)
[2021-05-17] MEDS: Multivitamins/Minerals TAB PO SCH (09:51)
[2021-05-17] MEDS: Nicotine PATCH 21 MG/24 HR PATCH TRANSDERM SCH (09:54)
[2021-05-17] MEDS ORDERED: Vancomycin Trough Check NOTE FOLLOW UP ONE (14:30)
[2021-05-17] MEDS: cefTRIAXone 1 gm/50 mL NS BAG 1 GM/50 ML BAG IVPB SCH (17:51)
[2021-05-17] MEDS: Vancomycin 1,500 MG in NS 0.9% 250 ml 250 ML IVPB SCH (22:39)
[2021-05-18] MEDS: HYDROcodone/ACETAMIN 5/325 mg TAB PO PRN ×4 (04:41→23:23)
[2021-05-18] MEDS: Heparin 5000 UNITS/ML 1 mL VIAL SUBCUT SCH ×3 (05:49→21:20)
[2021-05-18 06:27] LABS: Hematocrit 33 % (35-47); Hemoglobin 10.1 g/dL (12.0-16.0); Mean Corpuscular HGB Conc 31 g/dL (31-36); Mean Corpuscular Hemoglobin 24 pg (27-31); Mean Corpuscular Volume 76 fL (80-97); Mean Platelet Volume 7.8 fL (7.4-10.4); Platelet Count 305 10^3/uL (150-450); Red Blood Count 4.26 10^6 /uL (3.70-4.87); Red Cell Distribution Width 20 % (10-15); White Blood Count 13.4 10^3/uL (3.5-10.8)
[2021-05-18 06:39] LABS: ABS Basophils 0.1 10^3/ul (0-0.2); ABS Eosinophils 0.4 10^3/ul (0-0.6); ABS Lymphocytes 2.4 10^3/ul (1.0-4.8); ABS Neutrophils 8.5 10^3/ul (1.5-7.7); Eosinophil % 3.2 %; Nucleated Red Blood Cells % 0.2
[2021-05-18 06:44] LABS: Calcium 8.4 mg/dL (8.6-10.3); EGFR African American 93.4 (>60); EGFR Non-African American 77.2 (>60); Phosphorus 3.6 mg/dL (2.5-5.0); Potassium 4.3 mmol/L (3.5-5.0)
[2021-05-18] MEDS ORDERED: Iohexol 350 (CONTRAST) 500 ML MDV IV ONE (07:32)
[2021-05-18] MEDS: Nicotine PATCH 21 MG/24 HR PATCH TRANSDERM SCH (08:24)
[2021-05-18] MEDS: Multivitamins/Minerals TAB PO SCH (08:25)
[2021-05-18] MEDS ORDERED: Iodixanol (CONTRAST) 320 MG/ML 100 ML SDV IV ONE (10:43)
[2021-05-18] MEDS: Vancomycin 1,500 MG in NS 0.9% 250 ml 250 ML IVPB SCH ×2 (11:21→21:20)
[2021-05-18 13:04] LABS: C Reactive Protein 160.1 mg/L (<8.01)
[2021-05-18] MEDS ORDERED: Buffered Lidocaine 1% SYRIN 1 ml INTRADERM ONE (15:03)
[2021-05-18] MEDS: Collagenase 250 units/gm OINT 1 tube TOPICAL SCH (17:02)
[2021-05-18] MEDS: cefTRIAXone 1 gm/50 mL NS BAG 1 GM/50 ML BAG IVPB SCH (18:06)
[2021-05-19] MEDS: HYDROcodone/ACETAMIN 5/325 mg TAB PO PRN ×3 (05:36→17:42)
[2021-05-19] MEDS: Heparin 5000 UNITS/ML 1 mL VIAL SUBCUT SCH ×3 (05:36→21:13)
[2021-05-19] MEDS: Multivitamins/Minerals TAB PO SCH (08:48)
[2021-05-19] MEDS: Nicotine PATCH 21 MG/24 HR PATCH TRANSDERM SCH (08:49)
[2021-05-19] MEDS: Vancomycin 1,500 MG in NS 0.9% 250 ml 250 ML IVPB SCH ×2 (09:40→21:31)
[2021-05-19] MEDS: Collagenase 250 units/gm OINT 1 tube TOPICAL SCH (14:13)
[2021-05-19] MEDS: cefTRIAXone 1 gm/50 mL NS BAG 1 GM/50 ML BAG IVPB SCH (18:28)
[2021-05-20] MEDS: HYDROcodone/ACETAMIN 5/325 mg TAB PO PRN ×3 (00:22→11:59)
[2021-05-20] MEDS: Heparin 5000 UNITS/ML 1 mL VIAL SUBCUT SCH ×2 (06:16→13:44)
[2021-05-20] MEDS ORDERED: Vancomycin Trough Check NOTE FOLLOW UP ONE (08:30)
[2021-05-20] MEDS: Nicotine PATCH 21 MG/24 HR PATCH TRANSDERM SCH (09:36)
[2021-05-20] MEDS: Multivitamins/Minerals TAB PO SCH (09:37)
[2021-05-20] MEDS: Collagenase 250 units/gm OINT 1 tube TOPICAL SCH (09:39)
[2021-05-20] MEDS: Vancomycin 1,500 MG in NS 0.9% 250 ml 250 ML IVPB SCH (09:41)
[2021-05-20 11:42] VITALS: BP 128/81
[2021-05-20 14:24] LABS: Vitamin E 6.3 mg/L (5.5 - 17.0)
[2021-05-20 15:19] LABS: Vitamin A, S 18.9 mcg/dL (32.5-78.0)
[2021-05-20] MEDS ORDERED: Vancomycin 1,250 MG in NS 0.9% 250 ml 250 ML IVPB SCH (18:00)
[2021-05-22] MEDS ORDERED: Vancomycin Trough Check NOTE FOLLOW UP ONE (05:30)
== END 2021-05-20 13:56 | disposition home or self-care (01) | DRG 197 ==
LOC: SSU 13:38
PROVIDERS: ADMIT Surgery; ATTEND Surgery